=== PATIENT | male | born 2000 | race American Indian/Alaskan Native ===

== ENCOUNTER 2018-05-14 22:58 | Emergency (ER) | payer OTHER ==
[2018-05-14] MEDS ORDERED: TORADOL IV ONE (23:16)
[2018-05-14] MEDS ORDERED: BOOSTRIX IM ONE (23:21)
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
[2018-05-14 23:29] LABS: Basophils % (Auto) 0.4 % (0.0-1.8); Eosinophils % (Auto) 0.6 % (0.0-4.3); Hematocrit 47.9 % (35.5-45.6); Hemoglobin 15.9 gm/dl (11.8-15.2); Lymphocytes # (Auto) 1.3 K/mm3 (1.2-5.4); Mean Corpuscular HGB Conc 33 % (32-34); Mean Corpuscular Hemoglobin 27 pg (28-32); Mean Corpuscular Volume 82 fl (84-94); Monocytes # (Auto) 0.6 K/mm3 (0.0-0.8); Monocytes % (Auto) 7.6 % (0.0-7.3); Platelet Count 315 K/mm3 (140-440); Red Blood Count 5.87 M/mm3 (3.65-5.03); Red Cell Distribution Width 14.4 % (13.2-15.2)
[2018-05-14 23:37] LABS: INR 1.02 (0.87-1.13)
[2018-05-14 23:42] LABS: Alanine Aminotransferase 21 units/L (7-56); Albumin 4.9 g/dL (3.9-5); BUN/Creatinine Ratio 8; Blood Urea Nitrogen 9 mg/dL (9-20); Hemolysis Index 25
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
--- NOTE | 2018-05-14 23:53 | XRay Report ---
FINAL REPORT PROCEDURE: Right foot. TECHNIQUE: Three views. HISTORY: Foot trauma. COMPARISON: No prior studies are available for comparison. FINDINGS: There is a corner fracture off the lateral base of the distal phalanx of the great toe. There is approximately 1.5 millimeters of lateral displacement of the small fragment. The remaining bones appear intact. The joint spaces appear normal. The soft tissues are unremarkable. IMPRESSION: Fracture of the distal phalanx of the great toe.
[2018-05-15] MEDS ORDERED: TRIPLE ANTIBIOTIC TP ONE (00:37)
[2018-05-15 01:18] VITALS: BP 132/81
== END 2018-05-15 01:24 | disposition home or self-care (01) ==
LOC: ED 22:58
DX: S92.421A Displaced fracture of distal phalanx of right great toe, initial encounter for closed fracture (principal); V23.5XXA Motorcycle passenger injured in collision with car, pick-up truck or van in traffic accident, initial encounter; Y93.89 Activity, other specified; Y92.89 Other specified places as the place of occurrence of the external cause; Y99.8 Other external cause status
CPT/HCPCS: 36415; 71045; 72170; 73630; 80053; 85025; 85610; 90471; 90715; 96374; 99284; G0480; J1885; 80320; A6250